=== PATIENT | male | born 1960 | race African-American/Black ===

== ENCOUNTER 2017-11-22 10:00 | Emergency (ER) | payer MEDICARE, MEDICAID ==
[~2017-11-22] VITALS: Ht 180.3 cm; Wt 89.4 kg
[2017-11-22] MEDS ORDERED: ATEN25TA PO (10:22)
[2017-11-22] MEDS ORDERED: AMLO5TAB7 PO (10:22)
[2017-11-22 10:34] LABS: BASOPHILS % (AUTO) 0.5 % (0.0-2.0); EOSINOPHILS # (AUTO) 0.1 K/uL (0.0-0.7); EOSINOPHILS % (AUTO) 2.7 % (0.0-7.0); HEMATOCRIT 45.2 % (36.7-47.1); LYMPHOCYTES # (AUTO) 1.3 K/uL (20.0-40.0); LYMPHOCYTES % (AUTO) 32.5 % (20.5-51.5); MEAN CORPUSCULAR HEMOGLOBIN 32.1 uug (23.8-33.4); MEAN CORPUSCULAR HGB CONC 35 g/dL (32.5-36.3); MEAN CORPUSCULAR VOLUME 91.1 fL (73.0-96.2); MONOCYTES # (AUTO) 0.7 K/uL (2.0-10.0); MONOCYTES % (AUTO) 16.8 % (0.0-11.0); NEUTROPHILS # (AUTO) 1.9 K/uL (1.8-8.9); NEUTROPHILS % (AUTO) 47.5 % (38.5-71.5); PLATELET COUNT (AUTO) 163 K/uL (152-348); RED BLOOD CELL COUNT(AUTO) 4.96 MIL/uL (4.06-5.63)
[2017-11-22 10:37] LABS: CREATININE 1.3 mg/dL (0.6-1.3); POTASSIUM 5.7 mmol/L (3.5-5.1)
[2017-11-22 10:54] LABS: BAND % (MANUAL) 0 % (0-10); BASOPHILS % (MANUAL) 0 % (0-2); EOSINOPHILS % (MANUAL) 3 % (0-8); LYMPHOCYTES % (MANUAL) 36 % (20-40); MONOCYTES % (MANUAL) 12 % (2-10); NEUTROPHILS % (MANUAL) 49 % (42-75); REACTIVE LYMPHOCYTES 0 % (0-0)
[2017-11-22 10:55] LABS: BLASTS, MANUAL % 0 % (0-0); METAMYELOCYTES % 0 % (0-1); MYELOCYTES % 0 % (0-0); PROMYELOCYTES % 0 %
[2017-11-22 11:11] LABS: CREATININE 1.2 mg/dL (0.6-1.3); POTASSIUM 4.1 mmol/L (3.5-5.1)
[2017-11-22 11:31] VITALS: BP 146/88
--- NOTE | 2017-11-22 11:31 | NUR ---
Patient discharged to home in stable conditon. Written and verbal after care instructions given. Patient verbalizes understanding of instructions.
--- NOTE | 2017-11-22 11:31 | NUR ---
PT SELF-AMBULATED WITHOUT DIFFICULTY. ALL BELONGINGS TAKEN W/ PT AT TIME OF D/C.
== END 2017-11-22 11:32 | disposition home or self-care (01) ==
LOC: ER 10:00
DX: R00.1 Bradycardia, unspecified (principal); R53.1 Weakness; R42 Dizziness and giddiness; I10 Essential (primary) hypertension
CPT/HCPCS: 36415; 71045; 85025; 93005; A4663

== ENCOUNTER 2017-11-23 09:53 | Emergency (ER) | payer MEDICARE, MEDICAID ==
[~2017-11-23] VITALS: Ht 180.3 cm; Wt 83.9 kg
[~2017-11-23 09:53] MED LIST: AMLO5TAB7 PO; ATEN25TA PO
--- NOTE | 2017-11-23 10:28 | NUR ---
Dr Albert at the bedside for MSE.
[2017-11-23 11:18] LABS: BASOPHILS % (AUTO) 0.4 % (0.0-2.0); EOSINOPHILS # (AUTO) 0.1 K/uL (0.0-0.7); EOSINOPHILS % (AUTO) 2.6 % (0.0-7.0); HEMATOCRIT 44.8 % (36.7-47.1); HEMOGLOBIN 15.5 g/dL (12.5-16.3); LYMPHOCYTES # (AUTO) 1.5 K/uL (20.0-40.0); LYMPHOCYTES % (AUTO) 37.9 % (20.5-51.5); MEAN CORPUSCULAR HEMOGLOBIN 31.9 uug (23.8-33.4); MEAN CORPUSCULAR HGB CONC 35 g/dL (32.5-36.3); MEAN CORPUSCULAR VOLUME 91.7 fL (73.0-96.2); MONOCYTES # (AUTO) 0.7 K/uL (2.0-10.0); MONOCYTES % (AUTO) 16.8 % (0.0-11.0); NEUTROPHILS # (AUTO) 1.7 K/uL (1.8-8.9); NEUTROPHILS % (AUTO) 42.3 % (38.5-71.5); PLATELET COUNT (AUTO) 164 K/uL (152-348); RED BLOOD CELL COUNT(AUTO) 4.88 MIL/uL (4.06-5.63); WHITE BLOOD COUNT (AUTO) 4.1 K/uL (3.6-10.2)
[2017-11-23 11:27] LABS: CREATININE 1.2 mg/dL (0.6-1.3); POTASSIUM 4.2 mmol/L (3.5-5.1)
[2017-11-23 11:54] VITALS: BP 168/98
[2017-11-23 12:01] LABS: BAND % (MANUAL) 0 % (0-10); LYMPHOCYTES % (MANUAL) 38 % (20-40); NEUTROPHILS % (MANUAL) 49 % (42-75)
--- NOTE | 2017-11-23 12:01 | NUR ---
Patient discharged to home in stable conditon. Written and verbal after care instructions given. Patient verbalizes understanding of instructions.
[2017-11-23 12:02] LABS: BASOPHILS % (MANUAL) 0 % (0-2); EOSINOPHILS % (MANUAL) 3 % (0-8); MONOCYTES % (MANUAL) 10 % (2-10)
== END 2017-11-23 12:02 | disposition home or self-care (01) ==
LOC: ER 09:56
DX: R00.1 Bradycardia, unspecified (principal); R42 Dizziness and giddiness; I10 Essential (primary) hypertension
CPT/HCPCS: 36415; 71045; 80048; 84484; 85025; 85730; 93005; 99285; A4663; 70030-TC